=== PATIENT | female | born 2000 | race Caucasian/White ===

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

== ENCOUNTER 2022-07-15 11:07 | Outpatient (CLI) | payer BC, SELFPAY ==
[2022-07-15 09:58] LABS: Abs Immature Grans 0.01 10^3/uL (0.0-0.06); Absolute Basophil Count 0.05 10^3/uL (0.0-0.2); Absolute Eosinophil Count 0.08 10^3/uL (0.0-0.7); Absolute Lymphocyte Count 2.03 10^3/uL (1.2-3.4); Absolute Monocyte Count 0.59 10^3/uL (0.1-0.8); Absolute Neutrophil Count 4.53 10^3/uL (1.2-6.7); Basophils % 0.7; Eosinophils % 1.1; HGB 13.5 g/dL (11.2-15.7); Immature Grans % 0.1; Lymphocytes % 27.8; MCHC 32.9 % (32.0-36.0); MCV 88 fL (80-95); MPV 9.6 fL (8.0-11.0); Monocytes % 8.1; Neutrophils % 62.2; Platelet Count 283 10^3/uL (130-400); RBC 4.66 10^6/uL (3.93-5.22); RDW 11.9 % (11.7-14.6); RDW-SD 38.5 fL; WBC 7.29 10^3/uL (4.4-10.8)
[2022-07-15 10:15] LABS: ALT 28 U/L (14-59); AST 22 U/L (15-37); Albumin 4.1 g/dL (3.4-5.0); Alkaline Phosphatase 81 U/L (46-116); Amylase 37 U/L (25-115); Anion Gap 9.3 mmol/L (3-11); BUN 10 mg/dL (7-18); Bilirubin, Total 0.4 mg/dL (0.2-1.0); CO2 27.7 mmol/L (21.0-32.0); CREATININE 0.9 mg/dL (0.55-1.02); Calcium 9.2 mg/dL (8.5-10.1); Chloride 103 mmol/L (98-107); Estimated GFR 93.28 (mL/min/1.73m2); Glucose 96 mg/dL (74-106); Lipase 57 U/L (73-393); Potassium 4.4 mmol/L (3.5-5.1); Sodium 140 mmol/L (136-145); Total Protein 7.8 g/dL (6.4-8.2)
[2022-07-15 16:59] LABS: CRP, High Sensitivity 6.61 mg/L (See Note)
== END 2022-07-15 11:08 | disposition home or self-care (01) ==
LOC: LBO 11:09
PROVIDERS: PCP Nurse Practitioner Pediatrics; Visit Provider Nurse Practitioner Family
DX: R10.9 Unspecified abdominal pain (principal); G89.29 Other chronic pain
CPT/HCPCS: 36415; 80053; 83690; 86141; 82150; 85025

== ENCOUNTER 2022-09-15 12:38 | Outpatient (CLI) | payer BC, SELFPAY ==
[2022-09-17 12:55] LABS: IgA 75 mg/dL (85-499); Interpretation (See Note); Tissue Transglutaminase IgA <1.2 U/mL (<4.0)
== END 2022-09-15 12:39 | disposition home or self-care (01) ==
LOC: LBO 12:39
PROVIDERS: PCP Nurse Practitioner Pediatrics; Visit Provider Student in an Organized Health Care Education/Training Program
DX: R63.5 Abnormal weight gain (principal); G89.29 Other chronic pain; R10.9 Unspecified abdominal pain; R19.8 Other specified symptoms and signs involving the digestive system and abdomen
CPT/HCPCS: 36415; 82784; 83516; 84443

== ENCOUNTER 2024-12-20 09:53 | Outpatient (REF) | payer BC, SELFPAY ==
--- NOTE | 2024-12-20 09:20 | PAPFT_PTH ---
PATIENT: Anne Saab LOC: [facility] U#:[id number] AGE/SX: 24/F ROOM: RE12/20/[address]: Estelle Pickett NP : 2000 BED: DIS: 12/20/2024 SPEC #: [id number] RECD: 12/20/24 12:59 STATUS: KAYCE ANDERSON #: [id number] DERICK: 12/20/24 09:[address]: Estelle Pickett NP DEPT: [facility] Cytology RECD BY: Zoey Majano ENTERED: 12/20/24 13:00 SP TYPE: PAPFT OT DR: Unknown,Unknown Tissues: 1 - CX/ENDOCX FOR PAP SMEARS Procedures: PAP THIN PREP/[facility] Screening Comments: [id number]
== END 2024-12-20 09:54 | disposition home or self-care (01) ==
LOC: LBN 09:53
PROVIDERS: Visit Provider Nurse Practitioner Women's Health
DX: Z12.4 Encounter for screening for malignant neoplasm of cervix (principal)
CPT/HCPCS: 88142

== ENCOUNTER 2025-01-23 08:45 | Outpatient (REF) | payer BC, SELFPAY ==
[2025-01-23 15:21] LABS: HCT 40.8 % (36.0-46.0); HGB 13.8 g/dL (11.2-15.7); MCH 29.1 pg (27.0-33.0); MCHC 33.8 % (32.0-36.0); MCV 86 fL (80-95); MPV 10.5 fL (8.0-11.0); Platelet Count 307 10^3/uL (130-400); RBC 4.75 10^6/uL (3.93-5.22); WBC 5.89 10^3/uL (4.4-10.8)
[2025-01-23 17:03] LABS: ALT 22 U/L (14-59); AST 21 U/L (15-37); Alkaline Phosphatase 68 U/L (46-116); Anion Gap 10.2 mmol/L (3-11); BUN 11 mg/dL (7-18); Bilirubin, Total 0.2 mg/dL (0.2-1.0); CO2 22.8 mmol/L (21.0-32.0); CREATININE 0.7 mg/dL (0.55-1.02); Calcium 9.4 mg/dL (8.5-10.1); Calculated LDL 150 mg/dL (<100); Chloride 104 mmol/L (98-107); Cholesterol 223 mg/dL (<200); Estimated GFR 124.55 (mL/min/1.73m2); Glucose 93 mg/dL (74-106); HDL Cholesterol 50 mg/dL (>or=50); Potassium 4.6 mmol/L (3.5-5.1); Sodium 137 mmol/L (136-145); TSH 1.13 uIU/mL (0.36-3.74); Total Protein 7.4 g/dL (6.4-8.2); Triglyceride 118 mg/dL (<150)
[2025-01-23 22:40] LABS: T3, Total 169 ng/dL (97-169)
[2025-01-24 11:17] LABS: FREE T4 1.07 ng/dL (0.76-1.46)
== END 2025-01-23 08:46 | disposition home or self-care (01) ==
LOC: NCHCN 08:45
PROVIDERS: Visit Provider Physician Assistant
DX: R63.5 Abnormal weight gain (principal); Z13.6 Encounter for screening for cardiovascular disorders; Z13.220 Encounter for screening for lipoid disorders
CPT/HCPCS: 80053; 80061; 85027; 84439; 84443; 84480